=== PATIENT | female | born 1995 | race Two or more races ===

== ENCOUNTER 2017-08-13 20:16 | Emergency (ER) | payer MEDICAID ==
[~2017-08-13] VITALS: Ht 160 cm; Wt 49.4 kg
[2017-08-13 20:23] VITALS: Ht 160 cm; Wt 49.4 kg
[2017-08-14 02:20] VITALS: BP 119/72
== END 2017-08-14 02:20 | disposition home or self-care (01) ==
LOC: ED 20:16
DX: S09.90XA Unspecified injury of head, initial encounter (principal); T74.11XA Adult physical abuse, confirmed, initial encounter; Y04.2XXA Assault by strike against or bumped into by another person, initial encounter
CPT/HCPCS: J1885